=== PATIENT | female | born 1950 | race Caucasian/White ===

== ENCOUNTER → 2016-10-20 | Outpatient (CLI) | payer OTHER ==
[~2016-10-20] MED LIST: ADVAIR 100/501 E1 INH; ADVAIR HFA 115/1 AER INH; ALPRAZOLAM0.25 M2 PO; AMOXICILLIN500 MG PO; AMOXIL250 MG/5 M PO; AMOXIL400 MG/5 M PO; ASPIRIN ADULT L81 M1 PO; ASPIRIN CHILDRE81 MG PO; ATORVASTATIN CA40 M1 PO; AUGMENTIN ES-6100 ML PO; CHILDREN'S5 MG/5 M6 PO; CIPRO500 MG PO; CLEOCIN150 MG PO; CLEOCIN75 MG/5 ML PO; Carafate1 GM PO; EFFIENT10 M1 PO; FLAGYL500 MG PO; HYDROCODONE BIT1 T11 PO; LISINOPRIL10 M1 PO; LISINOPRIL2.5 MG PO; Lopressor25 MG PO; MEDROL DOSEPAK4 MG PO; MOTRIN100 MG/5 M PO; OMEPRAZOLE40 MG PO; PHENERGAN W/DM120 ML PO; PREDNISOLO15 MG/5 ML PO; PRELONE5 MG/5 ML PO; PRILOSEC20 MG PO; SINGULAIR10 MG PO; TOPROL XL25 MG PO; TYLENOL W/ CODEI5 ML PO; ULTRAM50 MG PO; VITAMIN D1000 IU PO
== END | disposition home or self-care (01) ==
LOC: MAMMO 08-25 12:30
DX: Z12.31 Encounter for screening mammogram for malignant neoplasm of breast (principal)

== ENCOUNTER → 2017-02-11 | Outpatient (CLI) | payer OTHER | END | disposition home or self-care (01) | LOC: US 10:13 | DX: I65.23 Occlusion and stenosis of bilateral carotid arteries (principal); I25.10 Atherosclerotic heart disease of native coronary artery without angina pectoris ==

== ENCOUNTER → 2017-02-23 | Outpatient (CLI) | payer OTHER | END | disposition home or self-care (01) | LOC: RAD 17:53 | DX: M47.892 Other spondylosis, cervical region (principal); M43.16 Spondylolisthesis, lumbar region; M48.06 Spinal stenosis, lumbar region; M47.897 Other spondylosis, lumbosacral region; M25.78 Osteophyte, vertebrae; I10 Essential (primary) hypertension ==

== ENCOUNTER → 2017-07-28 | Outpatient (CLI) | payer OTHER ==
[2017-07-28 15:25] LABS: BASO # 0.1 10*3/uL (0.0-0.1); BASO % 0.7 % (0.0-1.0); EOS # 0.2 10*3/uL (0.0-0.4); EOS % 1.8 % (1.0-4.0); LYMPH # 2.2 10*3/uL (1.3-4.4); LYMPH % 24.5 % (27.0-41.0); MEAN CELL VOLUME 93.8 fl (81.0-99.0); MEAN CORPUSCULAR HGB 31.3 pg (27.0-31.0); MEAN CORPUSCULAR HGB CONC 33.3 g/dl (33.0-37.0); MEAN PLATELET VOLUME 10.1 fl (9.6-12.3); MONO # 0.6 10*3/uL (0.1-1.0); MONO % 6.6 % (3.0-9.0); NEUT # 5.8 10*3/uL (2.3-7.9); NEUT % 65.9 % (47.0-73.0); PLATELET COUNT AUTOMATED 328 10*3/uL (130-400); RED BLOOD COUNT 3.52 10*6/uL (4.10-5.10); RED CELL DISTRI WIDTH 13.4 % (0-14.5); WHITE BLOOD COUNT 8.8 10*3/uL (4.8-10.8)
[2017-07-28 15:35] LABS: BUN 9 mg/dl (7-24); CHLORIDE 101 mmol/L (98-107); CREATININE 0.53 mg/dL (0.55-1.02); POTASSIUM 3.7 mmol/L (3.5-5.1); SODIUM 141 mmol/L (136-145)
== END | disposition home or self-care (01) ==
LOC: LAB 00:39 → ORTHO 00:39
PROVIDERS: Orthopaedic Surgery
DX: M47.892 Other spondylosis, cervical region (principal); M89.8X9 Other specified disorders of bone, unspecified site

== ENCOUNTER → 2017-08-06 | Outpatient (CLI) | payer OTHER | END | disposition home or self-care (01) | LOC: CT 13:43 | DX: M25.512 Pain in left shoulder (principal); M47.892 Other spondylosis, cervical region ==

== ENCOUNTER → 2018-02-10 | Outpatient (CLI) | payer MEDICARE, MEDICAID | END | disposition home or self-care (01) | LOC: RAD 11:03 | DX: Z13.820 Encounter for screening for osteoporosis (principal); M85.88 Other specified disorders of bone density and structure, other site; Z78.0 Asymptomatic menopausal state ==

== ENCOUNTER 2018-08-29 20:08 | Inpatient (IN) | payer MEDICARE, MEDICAID ==
[~2018-08-29] VITALS: Ht 149.8 cm; Wt 78.1 kg
--- NOTE | ~2018-08-29 | ST ---
[place], [place] EXERCISE STRESS TEST REPORT NAME: LOBO CARDENAS UNIT #: [id number] ROOM: 407 DOCTOR: ROSAURA ARMENTA MD BIRTHDATE: [birth year] DOS: 08/30/2018 LEXISCAN STRESS EKG REPORT REFERRING PHYSICIAN: Dr. Robins. INDICATIONS: Elevated troponin and chest pain. FINDINGS: The patient underwent standard protocol Lexiscan stress EKG. The patient's baseline EKG showed normal sinus rhythm, nonspecific ST-T wave changes. Baseline heart rate 70 with a blood pressure of 130/82. The patient's peak heart rate was 115 with a blood pressure of 148/80. The patient had no chest pain, no EKG changes, no arrhythmias. SUMMARY OF FINDINGS: Unremarkable Lexiscan stress EKG. Please see separate report for perfusion scan results. ROSAURA ARMENTA MD CM:STRESS:EXERCISE STRESS TEST REPORT [id number] ROSAURA ARMENTA MD
--- NOTE | ~2018-08-29 | EKG ---
[place], [place] ELECTROCARDIOGRAM REPORT NAME: LOBO CARDENAS UNIT #: [id number] ROOM: 407 DOCTOR: JAI DRAFT REPORT BIRTHDATE: [birth year] [facility] Test Date: 2018-08-29 Test Time: 20:22:15 Pat Name: LOBO CARDENAS Department: Room: 407 Gender: F Event Decorator: : 1950 Requested By: JANETH NUNEZ Order Number: [id number] Reading MD: Tia Bella MD Measurements Intervals [place] Rate: 66 P: 49 UT: 135 QRS: 3 QRSD: 97 T: 42 QT: 386 QTc: 405 Interpretive Statements Sinus rhythm Low voltage, precordial leads No previous ECG available for comparison Electronically Signed On 08-31-2018 11:49:09 PDT by Tia Bella MD CM:EKGRPT:ELECTROCARDIOGRAM REPORT [id number] 1149 JANETH ESPOSITO DRAFT REPORT JANETH NUNEZ DO
--- NOTE | ~2018-08-29 | EKG ---
[place], [place] ELECTROCARDIOGRAM REPORT NAME: LOBO CARDENAS UNIT #: [id number] ROOM: 407 DOCTOR: JAI DRAFT REPORT BIRTHDATE: [address] [facility] Test Date: 2018-08-30 Test Time: 02:23:13 Pat Name: LOBO CARDENAS Department: Room: 407 Gender: F Automotive Brake Specialist: : 1950 Requested By: JANTEH NUNEZ Order Number: [id number] Reading MD: Tia Bella MD Measurements Intervals [place] Rate: 53 P: 43 [place]: 145 QRS: 16 QRSD: 95 T: 35 QT: 419 QTc: 394 Interpretive Statements Sinus rhythm No previous ECG available for comparison Electronically Signed On 08-31-2018 11:49:48 PDT by Tia Bella MD CM:EKGRPT:ELECTROCARDIOGRAM REPORT [id number] JANETH ESPOSITO DRAFT REPORT JANETH NUNEZ DO
--- NOTE | ~2018-08-29 | EKG ---
[place], [place] ELECTROCARDIOGRAM REPORT NAME: LOBO CARDENAS UNIT #: [id number] ROOM: 407 DOCTOR: JAI DRAFT REPORT BIRTHDATE: [birth year] [facility] Test Date: 2018-08-29 Test Time: 23:31:25 Pat Name: LOBO CARDENAS Department: Room: 407 Gender: F Senior Microsoft Consultant: ANGLE RESP : 1950 Requested By: JANETH NUNEZ Order Number: [id number] Reading MD: Tia Bella MD Measurements Intervals [place] Rate: 67 P: 33 VA: 142 QRS: 1 QRSD: 118 T: 13 QT: 399 QTc: 422 Interpretive Statements Sinus rhythm Nonspecific intraventricular conduction delay Low voltage, precordial leads Minimal ST depression, anterolateral leads ST elevation, consider inferior injury Baseline wander in lead(s) II,III,aVR,aVL,aVF,V1,V2,V3,V4,V5,V6 No previous ECG available for comparison Electronically Signed On 08-31-2018 11:49:30 PDT by Tia Bella MD CM:EKGRPT:ELECTROCARDIOGRAM REPORT [id number] JANETH ESPOSITO DRAFT REPORT JANETH NUNEZ DO
[2018-08-29 20:10] VITALS: BP 147/60
[2018-08-29 20:37] LABS: BASO # 0.1 10*3/uL (0.0-0.1); BASO % 0.7 % (0.0-1.0); EOS # 0.2 10*3/uL (0.0-0.4); EOS % 2.1 % (1.0-4.0); HEMATOCRIT 38.7 % (37.0-47.0); HEMOGLOBIN 12.5 g/dl (12.0-16.0); LYMPH # 2.8 10*3/uL (1.3-4.4); LYMPH % 24.4 % (27.0-41.0); MEAN CELL VOLUME 92.8 fl (81.0-99.0); MEAN CORPUSCULAR HGB CONC 32.3 g/dl (33.0-37.0); MEAN PLATELET VOLUME 10.2 fl (9.6-12.3); MONO # 0.7 10*3/uL (0.1-1.0); MONO % 6.1 % (3.0-9.0); NEUT # 7.7 10*3/uL (2.3-7.9); NEUT % 66.3 % (47.0-73.0); PLATELET COUNT AUTOMATED 314 10*3/uL (130-400); RED BLOOD COUNT 4.17 10*6/uL (4.10-5.10); RED CELL DISTRI WIDTH 13.4 % (0-14.5); WHITE BLOOD COUNT 11.6 10*3/uL (4.8-10.8)
[2018-08-29 20:49] LABS: ACT PARTIAL THROMBO TIME 22.1 SECONDS (20.8-31.5); INTERNATIONAL NORM RATIO 0.9 (2.0-3.5)
[2018-08-29 21:10] LABS: ALBUMIN 3.9 gm/dl (3.1-4.5); ALKALINE PHOSPHATASE 95 U/L (45-117); BUN 10 mg/dl (7-24); CHLORIDE 102 mmol/L (98-107); CREATININE 0.79 mg/dL (0.55-1.02); POTASSIUM 3.7 mmol/L (3.5-5.1); SGOT/AST 17 IU/L (3-35); SGPT/ALT 24 U/L (12-78); SODIUM 141 mmol/L (136-145); TOTAL PROTEIN 7.8 gm/dL (6.4-8.2)
[2018-08-29 21:16] LABS: TROPONIN I 0.207 ng/ml (<0.045)
--- NOTE | 2018-08-29 21:18 | NUR ---
CRITICAL TROPONIN 0.207, DR NUNEZ AWARE
[2018-08-29] MEDS ORDERED: ALENDRONATE SOD70 M1 PO (22:00)
[2018-08-29] MEDS ORDERED: LORATADINE5 MG/5 M4 PO (22:00)
--- NOTE | 2018-08-29 22:46 | NUR ---
ATTEMPTED TO CALL ER REGARDING NO RECENT VITALS DOCUMENTED. UNABLE TO SPEAK TO NURSE.
[2018-08-29 22:50] VITALS: BP 115/51
--- NOTE | 2018-08-29 22:55 | NUR ---
Time: 2255 A 67 year old FEMALE admitted to 4E under services of CARLEY COLEMAN DO. Pt. arrived via stretcher from ER. Chief complaint: BACK PAIN. PETR LEAL
[2018-08-29 23:00] VITALS: BP 161/74
--- NOTE | 2018-08-29 23:10 | NUR ---
MED REC COMPLETED WITH PATIENT ALERT AND ORIENTED TO PERSON PLACE AND TIME
--- NOTE | 2018-08-29 23:28 | NUR ---
DR GUAN AWARE OF MED REC BEING COMPLETE AND EXCORIATION TO ABDOMINAL FOLD AND UNDER BREAST.
--- NOTE | 2018-08-30 00:32 | NUR ---
DR BURGOS AWARE OF CRITICAL TROPONIN.
--- NOTE | 2018-08-30 01:35 | NUR ---
DR ARMENTA'S ANSWERING SERVICE AWARE OF CONSULT. REQUESTED CALL BACK IN THE MORNING
--- NOTE | 2018-08-30 02:26 | NUR ---
DR BURGOS AWARE OF TROPONIN 0.203
--- NOTE | 2018-08-30 04:40 | NUR ---
24 HR chart check completed.
[2018-08-30 05:58] LABS: PHOSPHOROUS 4.8 mg/dL (2.5-4.9)
[2018-08-30 06:01] LABS: TROPONIN I 0.207 ng/ml (<0.045)
--- NOTE | 2018-08-30 06:02 | NUR ---
DR BURGOS AWARE OF TROPONIN
--- NOTE | 2018-08-30 06:08 | NUR ---
PATIENT RESTING IN BED WITH NO S/S OF DISTRESS. NO NEEDS MADE. BED IN LOWEST POSITION, BED ALARM ON, CALL LIGHT IN REACH
--- NOTE | 2018-08-30 07:33 | NUR ---
LOBO CARDENAS [id number] Please refer to the physician's history and physical for past medical history, comorbid conditions, and allergies. Diagnosis: ACS Jona Score: 18,AT RISK WOUND DESCRIPTIONS: Patient has red satelitte areas noted to bilateral breasts and lower abdominal fold. Musty odor noted. Patient states this has been on and off for 22 years. Surface the patient is resting on: Position Pro SKIN PREVENTION RECOMMENDATION: 1. Pressure redistribution support surface as appropriate 2. Elevate heels 3. Remove boots/TEDS every shift and reapply 4. Head of bed 30 degrees as tolerated 5. Assess nutrition and hydration 6. Manage moisture 7. Avoid the use of containment devices while in bed 8. Use absorptive products on surfaces limit layers of linens on bed 9. Turn and reposition every 1-2 hours in bed and every 1 hour in chair as tolerated 10. Weight shifts every 15 minutes while up in chair 11. Offloading with pillows or device to keep heels elevated off bed 12. Monitor skin at least every shift 13. Inspect under medical devices twice a day WOUND TREATMENT RECOMMENDATIONS: Continue current nystatin powder order every 8 hours.
[2018-08-30 08:00] VITALS: BP 142/78
--- NOTE | 2018-08-30 09:00 | NUR ---
Sound Designer in to talk to patient. Patient states lives at home with alone. There are no steps in the home. Physician: lizbet Pharmacy: [facility] Home health services: none Patient's level of ADLs: INDEPENDENT Patient has working utilities: all working DME: cane Follow-up physician's appointment after d/c: will be made by hospitalist nurse director upon discharge Does patient want to access PORTAL?: no Discharge plan discussed with patient, patient lives in an apartment alone, she states she uses a cane for ambulation, patient is independent in adls, she doesn't drive but her daughter takes her where ever she needs to go. patient states she will be going back home when able, discussed with her VNA and she declines any services at this time, case management will follow. REBEL LOPEZ
--- NOTE | 2018-08-30 10:42 | NUR ---
PATIENT TAKEN OFF FLOOR VIA W/C FOR SCHEDULED STRESS TEST.
--- NOTE | 2018-08-30 11:14 | NUR ---
PATIENT NOT AVAILALBE FOR ECHO. OFF THE FLOOR FOR OTHER TESTING.
--- NOTE | 2018-08-30 11:15 | NUR ---
INFORMED CONSENT OBTAINED FOR LEXISCAN NUCLEAR STRESS TEST WITH DR. ARMENTA. RESTING EKG NSR WITH A RESTING HR OF 70 WITH BP OF 130/82. LUNGS CLEAR WITH SPO2 OF 94% ON ROOM AIR. PT COMPLETED A 1:00 LEXISCAN PROTOCOL RECEIVING LEXISCAN 0.4 MG IV OVER 10 SECONDS. HAD NO CHEST PAIN OR ANY EKG CHANGES. HAD C/O "ODD FEELING" THAT SUBSIDED IN RECOVERY. HAD A PEAK HR OF 115 WITH BP OF 148/80. LAST RECOVERY HR OF 91 WITH BP OF 134/78. AWAITING SCANNING IN STABLE CONDITION.
--- NOTE | 2018-08-30 12:43 | NUR ---
PATIENT RETURNED TO ROOM FROM SCHEDULED STRESS TEST.
[2018-08-30] MEDS ORDERED: LISINOPRIL20 MG PO (15:50)
[2018-08-30 15:58] VITALS: BP 122/66
--- NOTE | 2018-08-30 16:03 | NUR ---
DISCHARGE PHOTO NOT NEEDED AT THIS TIME PER POLICY.
--- NOTE | 2018-08-30 17:45 | NUR ---
Discharge instructions reviewed with patient/family. Patient receptive and verbalizes understanding. Follow-up care arranged. Written instructions given to patient/family. FERMIN PÉREZ.
== END 2018-08-30 17:45 | disposition home or self-care (01) | DRG 281 ==
LOC: ED 20:08 → EDHOLD 22:14 → 4E 22:14
PROVIDERS: Emergency Medicine; Student in an Organized Health Care Education/Training Program; ADMIT Internal Medicine
DX: I21.A1 Myocardial infarction type 2 (principal); J90 Pleural effusion, not elsewhere classified; J98.11 Atelectasis; I24.9 Acute ischemic heart disease, unspecified; R73.9 Hyperglycemia, unspecified; I25.10 Atherosclerotic heart disease of native coronary artery without angina pectoris; E66.9 Obesity, unspecified; M54.6 Pain in thoracic spine; J41.0 Simple chronic bronchitis; E78.5 Hyperlipidemia, unspecified; Z87.891 Personal history of nicotine dependence; I10 Essential (primary) hypertension; K57.90 Diverticulosis of intestine, part unspecified, without perforation or abscess without bleeding; I25.2 Old myocardial infarction; Z95.5 Presence of coronary angioplasty implant and graft; Z88.8 Allergy status to other drugs, medicaments and biological substances; Z90.49 Acquired absence of other specified parts of digestive tract; Z90.710 Acquired absence of both cervix and uterus; Z82.3 Family history of stroke; Z80.8 Family history of malignant neoplasm of other organs or systems; Z85.41 Personal history of malignant neoplasm of cervix uteri; Z79.82 Long term (current) use of aspirin; Z79.899 Other long term (current) drug therapy; Z68.34 Body mass index [BMI] 34.0-34.9, adult

== ENCOUNTER → 2019-01-03 | Outpatient (CLI) | payer MEDICARE, MEDICAID ==
[~2019-01-03] MED LIST changes: +ALENDRONATE SOD70 M1 PO; +LISINOPRIL20 MG PO; +LORATADINE5 MG/5 M4 PO
== END | disposition home or self-care (01) ==
LOC: RAD 11:16
DX: M43.16 Spondylolisthesis, lumbar region (principal); M48.061 Spinal stenosis, lumbar region without neurogenic claudication; M47.816 Spondylosis without myelopathy or radiculopathy, lumbar region; M16.11 Unilateral primary osteoarthritis, right hip; R10.31 Right lower quadrant pain

== ENCOUNTER 2019-04-29 16:47 | Emergency (ER) | payer MEDICARE, MEDICAID ==
[~2019-04-29] VITALS: Ht 149.8 cm; Wt 72.6 kg
--- NOTE | ~2019-04-29 | EKG ---
[place], [place] ELECTROCARDIOGRAM REPORT NAME: LOBO CARDENAS UNIT #: [id number] ROOM: DOCTOR: EPIPHANY DRAFT REPORT BIRTHDATE: [birth year] [facility] Test Date: 2019-04-29 Test Time: 17:14:53 Pat Name: LOBO CARDENAS Department: Room: Gender: F Plant Machinist: : 1950 Requested By: EZEKIEL SEBASTIAN DNP Order Number: [id number] Reading MD: Vince Elam MD Measurements Intervals [place] Rate: 53 P: 42 [place]: 122 QRS: 8 QRSD: 97 T: 38 QT: 416 QTc: 391 Interpretive Statements Sinus rhythm Low voltage, precordial leads Compared to ECG 08/30/2018 02:23:13 Low QRS voltage now present Electronically Signed On 05-01-2019 8:16:19 PST by Vince Elam MD CM:EKGRPT:ELECTROCARDIOGRAM REPORT [id number] EZEKIEL SEBASTIAN DNP EPIPHANY DRAFT REPORT EZEKIEL SEBASTIAN DNP
[2019-04-29 17:29] LABS: BASO # 0.1 10*3/uL (0.0-0.1); BASO % 0.8 % (0.0-1.0); EOS # 0.2 10*3/uL (0.0-0.4); HEMATOCRIT 36.4 % (37.0-47.0); HEMOGLOBIN 11.7 g/dl (12.0-16.0); LYMPH # 2.8 10*3/uL (1.3-4.4); LYMPH % 27.5 % (27.0-41.0); MEAN CELL VOLUME 95.8 fl (81.0-99.0); MEAN CORPUSCULAR HGB 30.8 pg (27.0-31.0); MEAN CORPUSCULAR HGB CONC 32.1 g/dl (33.0-37.0); MEAN PLATELET VOLUME 9.9 fl (9.6-12.3); MONO # 0.7 10*3/uL (0.1-1.0); NEUT # 6.2 10*3/uL (2.3-7.9); NEUT % 62.3 % (47.0-73.0); PLATELET COUNT AUTOMATED 310 10*3/uL (130-400); RED CELL DISTRI WIDTH 13.6 % (0-14.5)
[2019-04-29 17:45] LABS: ALBUMIN 3.5 gm/dl (3.1-4.5); ALKALINE PHOSPHATASE 74 U/L (45-117); BUN 12 mg/dl (7-24); CHLORIDE 107 mmol/L (98-107); CREATININE 0.65 mg/dL (0.55-1.02); POTASSIUM 3.6 mmol/L (3.5-5.1); SGOT/AST 25 IU/L (3-35); SGPT/ALT 27 U/L (12-78); SODIUM 144 mmol/L (136-145); TOTAL PROTEIN 7.1 gm/dL (6.4-8.2)
[2019-04-29 17:47] LABS: TROPONIN I 0.178 ng/ml (<0.045)
[2019-04-29] MEDS ORDERED: DOXYCYCLINE100 M3 PO (19:18)
[2019-04-29] MEDS ORDERED: PREDNISONE20 M1 PO (19:18)
[2019-04-29] MEDS ORDERED: PROVENTIL HFA6.7 GM INH (19:18)
== END 2019-04-29 19:21 | disposition left against medical advice (07) ==
LOC: ED 16:47
PROVIDERS: Nurse Practitioner Family
DX: J20.9 Acute bronchitis, unspecified (principal); R79.89 Other specified abnormal findings of blood chemistry; I10 Essential (primary) hypertension; J45.909 Unspecified asthma, uncomplicated; E78.00 Pure hypercholesterolemia, unspecified; I25.2 Old myocardial infarction; Z79.899 Other long term (current) drug therapy; Z79.82 Long term (current) use of aspirin; Z87.891 Personal history of nicotine dependence

== ENCOUNTER → 2019-11-29 | Outpatient (CLI) | payer MEDICARE, MEDICAID ==
[~2019-11-29] MED LIST changes: +DOXYCYCLINE100 M3 PO; +PREDNISONE20 M1 PO; +PROVENTIL HFA6.7 GM INH
== END | disposition home or self-care (01) ==
LOC: RAD 10:30
DX: M47.817 Spondylosis without myelopathy or radiculopathy, lumbosacral region (principal); M85.88 Other specified disorders of bone density and structure, other site; M79.661 Pain in right lower leg

== ENCOUNTER → 2020-03-13 | Outpatient (CLI) | payer MEDICARE, MEDICAID | END | disposition home or self-care (01) | LOC: MAMMO 09:31 | PROVIDERS: ATTEND Internal Medicine | DX: Z12.31 Encounter for screening mammogram for malignant neoplasm of breast (principal); N63.25 Unspecified lump in the left breast, overlapping quadrants ==

== ENCOUNTER → 2021-03-19 | Outpatient (CLI) | payer MEDICARE, MEDICAID ==
[2021-03-19 09:05] LABS: BUN 15 mg/dl (7-24); CHLORIDE 103 mmol/L (98-107); CREATININE 0.68 mg/dL (0.55-1.02); POTASSIUM 4.4 mmol/L (3.5-5.1); SODIUM 139 mmol/L (136-145)
[2021-03-19 09:09] LABS: CHOLESTEROL 169 mg/dL (<200); LDL CHOLESTEROL 96 mg/dL (9-159); TRIGLYCERIDES 71 mg/dl (<150)
== END | disposition home or self-care (01) ==
LOC: LAB 08:19
PROVIDERS: ATTEND Internal Medicine
DX: I10 Essential (primary) hypertension (principal); I25.10 Atherosclerotic heart disease of native coronary artery without angina pectoris; E78.5 Hyperlipidemia, unspecified; E55.9 Vitamin D deficiency, unspecified; R19.7 Diarrhea, unspecified; R11.0 Nausea; E11.9 Type 2 diabetes mellitus without complications

== ENCOUNTER → 2021-04-11 | Outpatient (CLI) | payer MEDICARE, MEDICAID | END | disposition home or self-care (01) | LOC: RAD 07:56 | PROVIDERS: ATTEND Internal Medicine | DX: M47.817 Spondylosis without myelopathy or radiculopathy, lumbosacral region (principal); M25.78 Osteophyte, vertebrae; M48.07 Spinal stenosis, lumbosacral region; G95.89 Other specified diseases of spinal cord; M16.11 Unilateral primary osteoarthritis, right hip ==

== ENCOUNTER 2022-10-14 12:16 | Emergency (ER) | payer MEDICARE, MEDICAID ==
[~2022-10-14] VITALS: Ht 149.8 cm; Wt 79.4 kg
[2022-10-14] MEDS ORDERED: VITAMIN D310 MC2 PO (12:31)
[2022-10-14] MEDS ORDERED: HOSPBED (13:07)
[2022-10-14] MEDS ORDERED: LIFESTYLECOMFO1 EACH MC (13:07)
== END 2022-10-14 13:22 | disposition home or self-care (01) ==
LOC: ED 12:16
DX: R60.0 Localized edema (principal); I10 Essential (primary) hypertension; J45.909 Unspecified asthma, uncomplicated; I25.2 Old myocardial infarction; E78.00 Pure hypercholesterolemia, unspecified; Z88.8 Allergy status to other drugs, medicaments and biological substances; Z90.49 Acquired absence of other specified parts of digestive tract; Z98.890 Other specified postprocedural states; Z90.710 Acquired absence of both cervix and uterus; Z87.891 Personal history of nicotine dependence

== ENCOUNTER → 2023-06-16 | Outpatient (CLI) | payer MEDICARE, MEDICAID ==
[~2023-06-16] MED LIST changes: +HOSPBED; +LIFESTYLECOMFO1 EACH MC; +VITAMIN D310 MC2 PO
== END | disposition home or self-care (01) ==
LOC: RAD 08:19
PROVIDERS: ATTEND Registered Nurse
DX: R09.89 Other specified symptoms and signs involving the circulatory and respiratory systems (principal)

== ENCOUNTER → 2023-11-04 | Outpatient (CLI) | payer MEDICARE, MEDICAID ==
[~2023-11-04] MED LIST changes: +BUDESONIDE-FO10.2 GM INH; +METOPROLOL SUCC25 M2 PO; +NITROGLYCERIN0.4 MG SL
== END | disposition home or self-care (01) ==
LOC: RAD 11:14
PROVIDERS: ATTEND Internal Medicine
DX: J43.9 Emphysema, unspecified (principal); R09.89 Other specified symptoms and signs involving the circulatory and respiratory systems; I25.10 Atherosclerotic heart disease of native coronary artery without angina pectoris; I10 Essential (primary) hypertension; E11.9 Type 2 diabetes mellitus without complications

== ENCOUNTER 2025-02-01 09:22 | Emergency (ER) | payer MEDICARE, MEDICAID ==
[~2025-02-01] VITALS: Ht 149.8 cm; Wt 77.1 kg
[2025-02-01] MEDS ORDERED: Metoclopramide Hydrochloride 10 MG/2 ML VIAL IV ONE (09:45)
[2025-02-01] MEDS ORDERED: SODIUM CHLORIDE 0.9% 1,000 ML IV ONE (09:45)
[2025-02-01] MEDS ORDERED: ACETAMINOPHEN 325 MG TAB PO ONE (09:45)
[2025-02-01] MEDS ORDERED: diphenhydrAMINE hydrochloride 50 MG/ML VIAL IV ONE (09:45)
[2025-02-01 10:09] LABS: BASO # 0.1 10*3/uL (0.0-0.1); BASO % 1.5 % (0.0-1.0); EOS # 0.3 10*3/uL (0.0-0.4); EOS % 3.9 % (1.0-4.0); MEAN CELL VOLUME 93.6 fl (81.0-99.0); MEAN CORPUSCULAR HGB 29.5 pg (27.0-31.0); MEAN PLATELET VOLUME 9.3 fl (9.6-12.3); MONO # 0.6 10*3/uL (0.1-1.0); MONO % 9.2 % (3.0-9.0); NEUT # 4.2 10*3/uL (2.3-7.9); NEUT % 63.2 % (47.0-73.0); NUCLEATED RED BLOOD CELL 0.0 % (0.0-0.0); NUCLEATED RED BLOOD CELL 0.0 10*3/uL (0.0-0.0); PLATELET COUNT AUTOMATED 290 10*3/uL (130-400); RED CELL DISTRI WIDTH 13.2 % (0-14.5)
[2025-02-01 10:27] LABS: BUN 13 mg/dl (9-23)
[2025-02-01] MEDS ORDERED: REGLAN10 M1 PO (10:50)
[2025-02-01] MEDS ORDERED: TYLENOL EXTRA500 M2 PO (10:50)
== END 2025-02-01 11:24 | disposition home or self-care (01) ==
LOC: ED 09:22
PROVIDERS: Emergency Medicine
DX: R51.9 Headache, unspecified (principal); J44.9 Chronic obstructive pulmonary disease, unspecified; I10 Essential (primary) hypertension; I25.10 Atherosclerotic heart disease of native coronary artery without angina pectoris; Z88.8 Allergy status to other drugs, medicaments and biological substances; Z79.899 Other long term (current) drug therapy; Z79.82 Long term (current) use of aspirin; Z90.49 Acquired absence of other specified parts of digestive tract; Z87.891 Personal history of nicotine dependence; Z95.5 Presence of coronary angioplasty implant and graft